=== PATIENT | male | born 1970 | race American Indian/Alaskan Native ===

== ENCOUNTER 2017-04-05 05:28 | Observation (INO) | payer BC, OTHER ==
[2017-04-05 05:32] VITALS: BMI 23.1
[2017-04-05 05:42] VITALS: TEMP 97.5
[2017-04-05] MEDS ORDERED: Sodium Chloride 0.9% 1,000 ML IV STA (05:55)
--- NOTE | 2017-04-05 05:58 | ED PDOC ---
Arrival/HPI <Deven Trivedi - Last Filed: 04/05/17 06:44> - General Historian: Patient - History of Present Illness Time/Duration: 4-6 hours Symptom Onset: Sudden Symptom Course: Unchanged Quality: Other (sharp) Severity Level: 9 (only when periumbilical area is palpated) Activities at Onset: Rest Context: Work <Nikhil Baum - Last Filed: 04/05/17 07:01> <Ang Dalton - Last Filed: 04/05/17 13:31> - General Chief Complaint: Abdominal Pain Time Seen by Provider: 04/05/17 05:36 - History of Present Illness Narrative History of Present Illness (Text): 04/05/17 05:57 This is a 46 yr. old male with a past medical history of tracheotomy and traumatic brain injury who comes into [facility] complaining of periumbilical pain since 2 a.m. this morning. The patient describes the pain as sharp in nature when the donna-umbilical area is touched. The patient denies any radiation of the pain. The patient denies any modifying factors. The patient denies any nausea, vomiting, fevers, chills, changes in urination frequency or color, chest pain, shortness of breath, cva tenderness, or any other complaints. (Nikhli Baum) Past Medical History - Psychiatric Hx Substance Use: No - Surgical History Hx Musculoskeletal Surgery: Yes Other/Comment: Titanuim in right knee. Brain surgery - Anesthesia Hx Anesthesia: Yes <Nikhil Baum - Last Filed: 04/05/17 07:01> Family/Social History Family/Social History: No Known Family HX Smoking Status: Never Smoked Hx Alcohol Use: No Hx Substance Use: No <Nikhil Baum - Last Filed: 04/05/17 07:01> Allergies/Home Meds <Deven Trivedi - Last Filed: 04/05/17 06:44> <Nikhil Baum - Last Filed: 04/05/17 07:01> <Ang Dalton - Last Filed: 04/05/17 13:31> Allergies/Adverse Reactions: Allergies lactose Adverse Reaction (Verified 08/19/17 05:32) NAUSEA Review of Systems - Physician Review All systems were reviewed & negative as marked: Yes - Review of Systems Constitutional: Normal. absent: Fevers, Night Sweats Eyes: Normal. absent: Vision Changes, Eye Pain ENT: Normal. absent: Rhinorrhea, Sinus Congestion Respiratory: Normal. absent: SOB, Cough, Sputum Cardiovascular: Normal. absent: Chest Pain, Palpitations, Syncope Gastrointestinal: Abdominal Pain (periumbilical with no radiation). absent: Constipation, Diarrhea, Nausea, Vomiting, Hematemesis Genitourinary Male: Normal. absent: Frequency, Hematuria Musculoskeletal: Normal. absent: Back Pain Skin: Normal. absent: Rash, Skin Lesions, Laceration Neurological: Normal. absent: Headache, Dizziness Endocrine: Normal. absent: Polyuria, Polydipsia Psychiatric: Normal <Nikhil Baum - Last Filed: 04/05/17 07:01> Physical Exam Vital Signs Reviewed: Yes Temperature: Hypothermic Blood Pressure: Normal Pulse: Regular Respiratory Rate: Normal Appearance: Positive for: Well-Appearing, Non-Toxic, Comfortable Pain Distress: Moderate Mental Status: Positive for: Alert and Oriented X 3 - Systems Exam Head: Present: Atraumatic, Normocephalic Pupils: Present: PERRL. No: Non-Reactive Extroacular Muscles: Present: EOMI. No: Gaze Palsy Conjunctiva: Present: Normal Mouth: Present: Moist Mucous Membranes, Normal Tounge. No: Drooling Neck: Present: Normal Range of Motion. No: JVD, Lymphadenopathy Respiratory/Chest: Present: Clear to Auscultation, Good Air Exchange. No: Respiratory Distress, Accessory Muscle Use, Wheezes Cardiovascular: Present: Regular Rate and Rhythm, Normal S1, S2. No: Murmurs, Tachycardic, Bradycardic Abdomen: Present: Tenderness, Normal Bowel Sounds (periumbilical tenderness upon palpation with no radiation). No: Distention, Rebound Back: Present: Normal Inspection. No: CVA Tenderness Upper Extremity: Present: Normal Inspection. No: Cyanosis, Edema, Swelling Lower Extremity: Present: Normal Inspection. No: Edema Neurological: Present: CN II-XII Intact, Speech Normal Skin: Present: Dry, Normal Color. No: Warm, Rashes, Pale Psychiatric: Present: Alert, Oriented x 3, Normal Insight <Nikhil Baum - Last Filed: 04/05/17 07:01> Medical Decision Making <Deven Trivedi - Last Filed: 04/05/17 06:44> <Nikhil Baum - Last Filed: 04/05/17 07:01> <Ang Dalton - Last Filed: 04/05/17 13:31> ED Course and Treatment: 04/05/17 06:44 Patient seen and examined with resident Came up with treatment and disposition plan with resident 04/05/17 07:00 Patient signed out to Dr. Dalton in stable condition, pending CT, reeval, dispo (Deven Trivedi) 04/05/17 06:14 This is a 46 yr. old male that comes in complaining of periumbilical pain since 2 a.m. this morning. I order labs including: cbc w/diff, cmp, lipase and abdominal ct. Patient was given IV Toradol for the pain and fluids. Patient will be re-evaluated after lab results return. 04/05/17 06:38 04/05/17 06:41 Patient was placed on Observation for further abdominal pain workup and imaging. 04/05/17 06:57 At 7a.m. patient is currently stable and tolerating pain medications and reporting a decrease in pain. Patient signed out to Dr. Dalton in stable condition. (Nikhil Baum) - Lab Interpretations Lab Results: 04/05/17 06:15 04/05/17 06:15 Lab Results 04/05/17 06:15: Lipase 57 04/05/17 06:15: Sodium 144, Potassium 3.7, Chloride 105, Carbon Dioxide 27, Anion Gap 16, BUN 20, Creatinine 1.1, Est GFR ( Amer) > 60, Est GFR (Non- Af Amer) > 60, Random Glucose 85, Calcium 9.3, Total Bilirubin 0.6, AST 36, ALT 38, Alkaline Phosphatase 61, Total Protein 7.7, Albumin 4.6, Globulin 3.1, Albumin/Globulin Ratio 1.5 04/05/17 06:15: WBC 9.9, RBC 5.21, Hgb 13.9 L, Hct 42.1, MCV 80.8, MCH 26.7, MCHC 33.0, RDW 14.5, Plt Count 255, MPV 9.4, Gran % 57.1, Lymph % (Auto) 32.3, [place] % (Auto) 9.8 H, Eos % (Auto) 0.6 L, Baso % (Auto) 0.2, Gran # 5.65, Lymph # 3.2, [place] # 1.0 H, Eos # 0.1, Baso # 0.02 - Medication Orders Current Medication Orders: Discontinued Medications Sodium Chloride (Sodium Chloride 0.9%) 1,000 mls @ 999 mls/hr IV .Q1H1M STA Stop: 04/05/17 06:55 Last Admin: 04/05/17 06:25 Dose: 999 mls/hr Ciprofloxacin (Cipro 400mg/200ml Dsw) 400 mg in 200 mls @ 133.3 mls/hr IVPB STAT STA PRN Reason: Protocol Stop: 04/05/17 11:43 Last Admin: 04/05/17 12:10 Dose: 133.3 mls/hr Metronidazole (Flagyl) 500 mg in 100 mls @ 100 mls/hr IVPB STAT STA PRN Reason: Protocol Stop: 04/05/17 11:12 Last Admin: 04/05/17 10:38 Dose: 100 mls/hr Iohexol (Omnipaque 240 (50 Ml)) Confirm Administered Dose 50 ml .ROUTE .STK-MED ONE Stop: 04/05/17 06:34 Ketorolac Tromethamine (Toradol) 30 mg IVP STAT STA Stop: 04/05/17 05:55 Last Admin: 04/05/17 06:25 Dose: 30 mg Re-Assess: [facility] [place] Pain Assessment Document 04/05/17 07:25 AB (Rec: 04/05/17 07:54 AB [id number]) Pain Reassessment Is this a pain reassessment? Yes Sleep Is patient sleeping during reassessment? No Presence of Pain Presence of Pain No Pain Scale Used Pain Scale Used Numeric Description Alleviating Factors Medication Effectiveness of Techniques rest, medication ED OBSERVATION <Deven Trivedi - Last Filed: 04/05/17 06:44> Date of observation admission: 04/05/17 Time of observation admission: 06:41 <Nikhil Baum - Last Filed: 04/05/17 07:01> <Ang Dalton - Last Filed: 04/05/17 13:31> - Observation admission statement Patient is being placed in observation because:: Abdominal pain. (Nikhil Baum) - Goals of Observation Goals of observation are:: Abdominal pain workup and imaging. (Nikhil Baum) - Progress Note Progress Note: 04/05/17 06:14 This is a 46 yr. old male that comes in complaining of periumbilical pain since 2 a.m. this morning. I order labs including: cbc w/diff, cmp, lipase and abdominal ct. Patient was given IV Toradol for the pain and fluids. Patient will be re-evaluated after lab results return. 04/05/17 06:38 04/05/17 06:41 Patient was placed on Observation for further abdominal pain workup and imaging. 04/05/17 06:42 (Nikhil Baum) 04/05/17 07:00 Patient endorsed to me by Dr. Trivedi and Resident, pending CT, re-evaluation and disposition. Patient presented with periumbilical pain. 04/05/17 09:00 Patient resting comfortably, in no acute distress. Report Date : 04/05/2017 09:49:19 PROCEDURE: CT Abdomen and Pelvis with contrast Dictator : Dmitry Ruiz MD IMPRESSION: Possible early mechanical small bowel obstruction. Dilated loops of proximal jejunum without clear transition point. Followup advised. No other acute abnormality. 04/05/17 09:59 Surgical attending called. Resident paged. Awaiting call back. 04/05/17 10:[address] Fernandez who advised to call his resident and start patient on Cipro and Flagyl. He states that he will come and evaluate patient. 04/05/17 12:40 Dr. Fernandez, surgeon, came to evaluate patient and recommends that patient can be discharged home with followup with him. He gave patient his card and explained follow up instructions. CT reviewed by Dr. Fernandez. Patient's abdomen is soft and not tender. No distended. Normal BS. Patient was able to tolerate PO fluids and food in the ED with no vomiting. He recevied IV abx and was observed. Although CT results express possible early SBO, considering clinical exam and patient passing gas/bowel movement this is not likely a SBO. Patient was offerred admission by Dr. Fernandez and I for observation but patient did not want to stay in the hospital. He was advised to return to the ED immediately if symptoms worsen or any other concern. He was given follow up instructions by Dr. Fernandez, his cardiovascular surgical tech, and me. ( Ang Dalton) Disposition/Present on Arrival <Deven Trivedi - Last Filed: 04/05/17 06:44> - Present on Arrival Any Indicators Present on Arrival: No History of DVT/PE: No History of Uncontrolled Diabetes: No Urinary Catheter: No History of Decub. Ulcer: No History Surgical Site Infection Following: None - Disposition Disposition Time: 06:40 Patient Plan: Observation <Nikhil Baum - Last Filed: 04/05/17 07:01> - Present on Arrival Any Indicators Present on Arrival: No - Disposition Have Diagnosis and Disposition been Completed?: Yes Disposition Time: 12:16 Patient Plan: Discharge <Ang Dalton - Last Filed: 04/05/17 13:31> - Disposition Diagnosis: Abdominal pain Disposition: HOME/ ROUTINE Condition: IMPROVED
[2017-04-05] MEDS ORDERED: Iohexol 240 (50 ml) ONE (06:33)
[2017-04-05 06:42] LABS: ALB/GLOB RATIO 1.5 (1.1-1.8); ALKALINE PHOSPHATASE 61 U/L (38-133); ALT/SGPT 38 U/L (7-56); AST/SGOT 36 U/L (15-59); BILIRUBIN,TOTAL 0.6 mg/dL (0.2-1.3); BLOOD UREA NITROGEN 20 mg/dL (7-21); CALCIUM 9.3 mg/dL (8.4-10.5); CARBON DIOXIDE 27 mmol/L (21-33); CHLORIDE 105 mmol/L (98-107); GFR AFRICAN-AMERICAN > 60; GLUCOSE,RANDOM 85 mg/dL (70-110); POTASSIUM 3.7 mmol/L (3.6-5.0); SODIUM 144 mmol/L (132-148); TOTAL PROTEIN 7.7 g/dL (5.8-8.3)
[2017-04-05 06:54] LABS: HEMATOCRIT 42.1 % (42.0-52.0); WHITE BLOOD COUNT 9.9 10^3/ul (4.5-11.0)
[2017-04-05 06:55] LABS: BASO % 0.2 % (0.0-3.0); EOS % 0.6 % (1.5-5.0); GRAN % 57.1 % (50.0-68.0); LYMPH % 32.3 % (22.0-35.0); MEAN CELL VOLUME 80.8 fl (80.0-105.0); MEAN CORPUSCULAR HEMOGLOBIN 26.7 pg (25.0-35.0); MEAN PLATELET VOLUME 9.4 fl (7.0-11.0); MONO % 9.8 % (1.0-6.0); RED CELL DISTRIBUTION WIDTH 14.5 % (11.5-14.5)
[2017-04-05 06:57] LABS: EOS # 0.1 (0.0-0.7); GRAN # 5.65 (1.4-6.5); LYMPH # 3.2 (1.2-3.4)
[2017-04-05 06:59] LABS: BASO # 0.02 K/mm3 (0.0-2.0)
[2017-04-05] MEDS ORDERED: Iohexol 350 MG/100 ML VIAL ONE (08:30)
--- NOTE | 2017-04-05 09:50 | CT ---
PROCEDURE: CT Abdomen and Pelvis with contrast HISTORY: ABDOMINAL PAIN COMPARISON: None. TECHNIQUE: Contrast dose: 100 mL Omnipaque 350 Radiation dose: Total exam DLP = 436.02 mGy-cm. This CT exam was performed using one or more of the following dose reduction techniques: Automated exposure control, adjustment of the mA and/or kV according to patient size, and/or use of iterative reconstruction technique. FINDINGS: LOWER THORAX: Unremarkable. LIVER: Unremarkable. No gross lesion or ductal dilatation. GALLBLADDER AND BILE DUCTS: Unremarkable. PANCREAS: Unremarkable. No gross lesion or ductal dilatation. SPLEEN: Unremarkable. ADRENALS: Unremarkable. No mass. KIDNEYS AND URETERS: Unremarkable. No hydronephrosis. No solid mass. VASCULATURE: Unremarkable. No aortic aneurysm. BOWEL: Dilated loops of proximal jejunum up to 3 cm diameter. Possible early mechanical small bowel obstruction. No definite transition point identified. There is no distention of the ileal loops. Followup advised. Sigmoid diverticulosis without evidence of diverticulitis. No other abnormal bowel loops. APPENDIX: Normal appendix. PERITONEUM: Unremarkable. No free fluid. No free air. LYMPH NODES: Unremarkable. No enlarged lymph nodes. BLADDER: Unremarkable. REPRODUCTIVE: Normal prostate BONES: No acute fracture. OTHER FINDINGS: None. IMPRESSION: Possible early mechanical small bowel obstruction. Dilated loops of proximal jejunum without clear transition point. Followup advised. No other acute abnormality.
[2017-04-05] MEDS ORDERED: metroNIDAZOLE IV 500 mg/100 ml 500 MG/100 ML BAG IVPB STA (10:13)
[2017-04-05] MEDS ORDERED: Ciprofloxacin 400mg/200ml D5W 400 MG/200 ML BAG IVPB STA (10:13)
--- NOTE | 2017-04-05 10:55 | CP.PCM.CON ---
<Jenny Lynch - Last Filed: 04/05/17 12:17> History of Present Illness - History of Present Illness History of Present Illness: General surgery consult note for Dr. Fernandez-Jenny Lynch, PGY-1 Pt S & E at bedside. 46M w/no sig PMH consulted for abdominal pain x 1 day. Pain is periumbilical, non radiating, moderate, intermittent, onset at 2am on day of evaluation. Pain alleviated by Toradol in ED. Reports that due to work conditions, he uses Imodium frequently to prevent BMs. Usually has BM in AM after energy drink ingestion. Last BM early AM, daily BM pattern. Admits to flatus, belching. Denies N/V/F/C, SOB, CP, palpitations, hematochezia, melena, changes in stool character, changes in bladder habits. PMH: Lactose intolerance, hx of heart murmur PSH: Denies All: NKDA SH: Denies tobacco, ETOH, illicit drugs FH: Non contributory Review of Systems - Review of Systems All systems: reviewed and no additional remarkable complaints except - Constitutional Constitutional: absent: Chills, Fever - EENT Eyes: absent: Change in Vision Nose/Mouth/Throat: absent: Sore Throat - Cardiovascular Cardiovascular: absent: Chest Pain, Palpitations - Respiratory Respiratory: absent: Cough - Gastrointestinal Gastrointestinal: Abdominal Pain, Belching, Change in Bowel Habits. absent: Change in Stool Character, Constipation, Diarrhea, Early Satiety, Hematemesis, Hematochezia, Melena, Nausea, Vomiting - Genitourinary Genitourinary: absent: Change in Urinary Stream, Dysuria - Musculoskeletal Musculoskeletal: absent: Numbness, Tingling - Neurological Neurological: absent: Weakness - Psychiatric Psychiatric: absent: Change in Appetite Past Patient History - Past Social History Smoking Status: Never Smoked - PSYCHIATRIC Hx Substance Use: No - SURGICAL HISTORY Hx Musculoskeletal Surgery: Yes Other/Comment: Titanuim in right knee. Brain surgery - ANESTHESIA Hx Anesthesia: Yes Meds Home Medications: Home Medication List Medication Instructions Recorded Confirmed Type Ciprofloxacin [Cipro] 500 mg PO Q12 #20 tab 04/05/17 Rx Ranitidine HCl [Zantac] 150 mg PO BID PRN #30 tablet 04/05/17 Rx metroNIDAZOLE [Flagyl] 500 mg PO TID #30 tab 04/05/17 Rx Allergies/Adverse Reactions: Allergies Allergy/AdvReac Type Severity Reaction Status Date / Time lactose AdvReac NAUSEA Verified 04/05/17 05:32 - Medications Medications: Current Medications Ciprofloxacin (Cipro 400mg/200ml Dsw) 400 mg in 200 mls @ 133.3 mls/hr IVPB STAT STA PRN Reason: Protocol Stop: 04/05/17 11:43 Metronidazole (Flagyl) 500 mg in 100 mls @ 100 mls/hr IVPB STAT STA PRN Reason: Protocol Stop: 04/05/17 11:12 Physical Exam - Constitutional Appears: Non-toxic, No Acute Distress - Head Exam Head Exam: ATRAUMATIC, NORMAL INSPECTION, NORMOCEPHALIC - Eye Exam Eye Exam: EOMI, Normal appearance - ENT Exam ENT Exam: Mucous Membranes Moist, Normal Exam - Neck Exam Neck exam: Positive for: Full Rom, Normal Inspection - Respiratory Exam Respiratory Exam: Clear to Auscultation Bilateral, NORMAL BREATHING PATTERN. absent: Rales, Rhonchi, Wheezes - Cardiovascular Exam Cardiovascular Exam: REGULAR RHYTHM, +S1, +S2 - GI/Abdominal Exam GI & Abdominal Exam: Hyperactive Bowel Sounds, Normal Bowel Sounds, Soft. absent: Distended, Firm, Guarding, Hernia, Rebound, Rigid, Tenderness Additional comments: well developed abdominal musculature - Extremities Exam Extremities exam: Positive for: normal inspection. Negative for: pedal edema, tenderness - Neurological Exam Neurological exam: Alert, CN II-XII Intact, Oriented x3 - Psychiatric Exam Psychiatric exam: Normal Affect, Normal Mood - Skin Skin Exam: Dry, Intact, Normal Color, Warm Results - Vital Signs Recent Vital Signs: Last Vital Signs Temp 97.5 F L 04/05/17 05:34 Pulse 52 L 04/05/17 10:25 Resp 18 04/05/17 10:25 BP 122/80 04/05/17 10:25 Pulse Ox 98 04/05/17 10:25 - Labs Result Diagrams: 04/05/17 06:15 04/05/17 06:15 Labs: Laboratory Results - last 24 hr 04/05/17 10:35 BBK History Checked No verified bt Assessment & Plan - Assessment and Plan (Free Text) Assessment: 46M w/no sig PMH consulted for periumbical abdominal pain Plan: CT abdomen with findings of possible early mechanical small bowel obstruction, dilated loops of proximal jejunum w/o clear transition point Symptoms resolved OK to d/c home if tolerates diet d/c on Cipro, Flagyl x 10 days DW attending Cris, PGY-1 - Date & Time Date: 04/05/17 Time: 10:57 <Dante Fernandez - Last Filed: 04/05/17 17:19> Results - Vital Signs Recent Vital Signs: Last Vital Signs Temp 97.5 F L 04/05/17 11:09 Pulse 56 L 04/05/17 11:09 Resp 16 04/05/17 11:09 BP 123/80 04/05/17 11:09 Pulse Ox 100 04/05/17 11:09 - Labs Result Diagrams: 04/05/17 06:15 04/05/17 06:15 Labs: Laboratory Results - last 24 hr 04/05/17 04/05/17 10:35 11:04 Blood Type O NEGATIVE Blood Type Confirm O NEGATIVE Antibody Screen Negative BBK History Checked No verified bt Attending/Attestation - Attestation I have personally seen and examined this patient.: Yes I have fully participated in the care of the patient.: Yes I have reviewed all pertinent clinical information: Yes Notes (Text): 04/05/17 17:18 Pt was seen and examined at bedside Agree with above note and assessment Pt with Enteritis and Abdominal pain Pt is asymptomatic at present Complete IV antibiotics If patient tolerated Full liquid diet, Pt can be DC home with PO antibiotics Plan d.w pt in detail Risk and benefit explained in detail.
[2017-04-05 11:10] VITALS: BP 123/80; PULSE 56; RESP 16; O2SAT 100
== END 2017-04-05 12:30 | disposition home or self-care (01) ==
LOC: ED 05:28 → EROBSV 06:38
PROVIDERS: ADMIT Emergency Medicine; ATTEND Emergency Medicine
DX: R10.33 Periumbilical pain (principal)
CPT/HCPCS: 74177; 80053; 83690; 85025; 86850; 86900; 87040; 96365; 96367; 96375; 99285; G0378; J0744; J1885; J7040; Q9966; Q9967